=== PATIENT | female | born 1950 | race Caucasian/White ===

== ENCOUNTER → 2017-09-02 | Outpatient (CLI) | payer MEDICARE, BC | END | disposition home or self-care (01) | LOC: HKI 13:51 | DX: Q72.891 Other reduction defects of right lower limb (principal); M25.561 Pain in right knee | CPT/HCPCS: 73562; 73562-RT ==

== ENCOUNTER → 2017-09-16 | Outpatient (CLI) | payer MEDICARE, BC | END | disposition home or self-care (01) | LOC: HKI 13:27 | DX: M17.11 Unilateral primary osteoarthritis, right knee (principal) | CPT/HCPCS: 20610 ==

== ENCOUNTER → 2017-12-19 | Outpatient (CLI) | payer MEDICARE, BC | END | disposition home or self-care (01) | LOC: HKI 11:24 | DX: M17.11 Unilateral primary osteoarthritis, right knee (principal); M75.51 Bursitis of right shoulder | CPT/HCPCS: 73030; 73030-RT ==

== ENCOUNTER → 2018-02-13 | Outpatient (CLI) | payer MEDICARE, BC | END | disposition home or self-care (01) | LOC: HKI 10:36 | DX: M25.511 Pain in right shoulder (principal); M25.561 Pain in right knee | CPT/HCPCS: G0463 ==

== ENCOUNTER → 2018-02-20 | Outpatient (CLI) | payer MEDICARE, BC | END | disposition home or self-care (01) | LOC: HKI 09:58 | DX: M25.511 Pain in right shoulder (principal); M75.51 Bursitis of right shoulder | CPT/HCPCS: 20610 ==